=== PATIENT | female | born 2000 | race Two or more races ===

== ENCOUNTER → 2021-12-04 | Day surgery (SDC) | payer OTHER | END | disposition home or self-care (01) | LOC: ADM 11-28 11:15 → CIR.AMB 07:36 | PROVIDERS: ATTEND Orthopaedic Surgery Hand Surgery | DX: S62.652A Nondisplaced fracture of middle phalanx of right middle finger, initial encounter for closed fracture (principal); M24.541 Contracture, right hand ==

== ENCOUNTER 2024-07-28 13:16 | Outpatient (CLI) | payer OTHER | END 2024-07-28 13:22 | disposition home or self-care (01) | LOC: PRENATAL 13:16 | PROVIDERS: ATTEND Obstetrics & Gynecology Maternal & Fetal Medicine | DX: O36.80X0 Pregnancy with inconclusive fetal viability, not applicable or unspecified (principal); Z36.82 Encounter for antenatal screening for nuchal translucency; O30.90 Multiple gestation, unspecified, unspecified trimester; O34.219 Maternal care for unspecified type scar from previous cesarean delivery; Z14.8 Genetic carrier of other disease; Z3A.12 12 weeks gestation of pregnancy ==

== ENCOUNTER 2024-09-23 13:12 | Outpatient (CLI) | payer OTHER | END 2024-09-23 13:13 | disposition home or self-care (01) | LOC: PRENATAL 13:12 | PROVIDERS: ATTEND Obstetrics & Gynecology Maternal & Fetal Medicine | DX: O44.00 Complete placenta previa NOS or without hemorrhage, unspecified trimester (principal); O30.90 Multiple gestation, unspecified, unspecified trimester; O34.219 Maternal care for unspecified type scar from previous cesarean delivery; Z3A.20 20 weeks gestation of pregnancy ==

== ENCOUNTER 2024-10-22 10:45 | Outpatient (CLI) | payer OTHER | END 2024-10-22 10:47 | disposition home or self-care (01) | LOC: PRENATAL 10:45 | PROVIDERS: ATTEND Obstetrics & Gynecology Maternal & Fetal Medicine | DX: O26.849 Uterine size-date discrepancy, unspecified trimester (principal); O30.90 Multiple gestation, unspecified, unspecified trimester; O34.219 Maternal care for unspecified type scar from previous cesarean delivery; Z3A.24 24 weeks gestation of pregnancy ==

== ENCOUNTER 2024-11-19 11:33 | Outpatient (CLI) | payer OTHER | END 2024-11-19 11:34 | disposition home or self-care (01) | LOC: PRENATAL 11:33 | PROVIDERS: ATTEND Obstetrics & Gynecology Maternal & Fetal Medicine | DX: O26.849 Uterine size-date discrepancy, unspecified trimester (principal); O30.90 Multiple gestation, unspecified, unspecified trimester; O34.219 Maternal care for unspecified type scar from previous cesarean delivery; O99.019 Anemia complicating pregnancy, unspecified trimester; Z3A.28 28 weeks gestation of pregnancy ==

== ENCOUNTER → 2024-12-16 16:03 | Outpatient (CLI) | payer OTHER | END | disposition home or self-care (01) | LOC: PRENATAL 16:03 | PROVIDERS: ATTEND Obstetrics & Gynecology Maternal & Fetal Medicine | DX: O26.849 Uterine size-date discrepancy, unspecified trimester (principal); O36.8199 Decreased fetal movements, unspecified trimester, other fetus; O30.90 Multiple gestation, unspecified, unspecified trimester; O34.219 Maternal care for unspecified type scar from previous cesarean delivery; Z3A.32 32 weeks gestation of pregnancy ==

== ENCOUNTER 2024-12-17 12:06 | Outpatient (CLI) | payer OTHER | END 2024-12-17 12:07 | disposition home or self-care (01) | LOC: PRENATAL 12:06 | PROVIDERS: ATTEND Obstetrics & Gynecology Maternal & Fetal Medicine | DX: Z76.1 Encounter for health supervision and care of foundling (principal) ==

== ENCOUNTER 2025-05-27 16:06 | Inpatient (IN) | payer OTHER ==
[~2025-05-27] VITALS: Ht 152.4 cm; Wt 79.8 kg
[2025-05-27] MEDS ORDERED: FAMOTIDINE/PF 20 MG/2 ML VIAL IV PUSH STA (18:04)
[2025-05-27 18:21] LABS: BASO % 0.1 % (0.1-1.2); EOS # 0.01 (0.04-0.54); EOS % 0.1 % (0.7-7.0); LYMPH # 1.29 (1.18-3.74); LYMPH % 12.0 % (19.3-53.1); MEAN PLATELET VOLUME 11.20 fl (9.4-12.4); MONO # 0.33 (0.24-0.82); MONO % 3.1 % (4.7-12.5); NEUT # 9.10 (1.56-6.13); NEUT % 84.3 % (34.0-71.1); RED CELL DISTRIBUTION WIDTH 16.0 % (11.6-14.4)
[2025-05-27 20:19] LABS: ALT/SGPT 160.0 U/L (12-78); AST/SGOT 181.0 U/L (15-37); BILIRUBIN TOTAL 0.71 mg/dL (0.3-1.2); BUN CREA RATIO 16.0 (7.0-25.0); CREATININE SERUM 0.69 mg/dL (0.55-1.02); GFR 103.66; GLOBULINA 3.1 G/DL (2.4-3.5); GLUCOSE FASTING 100.0 mg/dL (65-100); OSMOLALITY SERUM 281.0 MOSM/KG (275-295)
[2025-05-27 20:42] LABS: URINE APPEARANCE Cloudy; URINE BILIRRUBIN Negative (NEGATIVE); URINE BLOOD Small; URINE COLOR Dark Yellow; URINE GLUCOSE Negative (NEGATIVE); URINE KETONE 15 (NEGATIVE); URINE LEUKOCYTE Large; URINE NITRATE Negative; URINE PROTEIN Trace (NEGATIVE); URINE UROBILINOGEN 0.2 E.U./dl
[2025-05-27 20:45] LABS: URINE BACTERIA 7331.9 uL (0.0-1933); URINE EPITHELIAL CELLS 71.9 uL (0.0-38.8); URINE RBC 52.5 uL (0.0-20.8); URINE WBC 1222.1 uL (0.0-23.2)
[2025-05-27 20:57] LABS: URINE CAST 0.43 uL (0.0-1.40)
[2025-05-27 20:58] LABS: URINE YEAST FEW /hpf
[2025-05-27] MEDS ORDERED: RINGERS SOLUTION,LACTATED 1,000 ML IV SCH (21:15)
[2025-05-27] MEDS ORDERED: ONDANSETRON HCL 4 MG in DEXTROSE 5 % IN WATER 50 ML IV PRN (21:15)
[2025-05-27] MEDS ORDERED: KETOROLAC TROMETHAMINE 30 MG VIAL IV PRN (21:15)
[2025-05-27] MEDS ORDERED: MORPHINE SULFATE 4 MG/ML VIAL IV PRN (21:15)
[2025-05-27] MEDS ORDERED: PIPERACILLIN/TAZOBACTAM SODIUM 3.375 GM in DEXTROSE 5 % IN WATER 100 ML IV SCH (21:38)
[2025-05-27 22:57] LABS: CHOL HDL RATIO 2.6 (0-5.0); HDL 49.0 mg/dl (40-60); LDL 70.0 mg/dl (0-130); VLDL 10.0 (0-39)
[2025-05-28] MEDS ORDERED: FAMOTIDINE/PF 20 MG/2 ML VIAL IV SCH (09:00)
[2025-05-28 14:22] VITALS: BP 101/52; O2SAT 99
[2025-05-28 17:51] VITALS: BP 118/53; O2SAT 99
[2025-05-29 01:00] VITALS: BP 120/79; O2SAT 98
[2025-05-29 07:59] LABS: BASO % 0.4 % (0.1-1.2); EOS # 0.31 (0.04-0.54); EOS % 4.1 % (0.7-7.0); LYMPH # 2.39 (1.18-3.74); LYMPH % 31.8 % (19.3-53.1); MEAN PLATELET VOLUME 11.70 fl (9.4-12.4); MONO # 0.31 (0.24-0.82); MONO % 4.1 % (4.7-12.5); NEUT # 4.45 (1.56-6.13); NEUT % 59.3 % (34.0-71.1); RED CELL DISTRIBUTION WIDTH 16.2 % (11.6-14.4)
[2025-05-29 08:00] VITALS: BP 106/71; O2SAT 98
[2025-05-29 08:16] VITALS: BP 106/71; O2SAT 98
[2025-05-29 08:18] LABS: ALT/SGPT 72.0 U/L (12-78); AST/SGOT 22.0 U/L (15-37); BILIRUBIN TOTAL 0.51 mg/dL (0.3-1.2); BUN CREA RATIO 15.0 (7.0-25.0); CREATININE SERUM 0.65 mg/dL (0.55-1.02); GFR 111.06; GLOBULINA 2.4 G/DL (2.4-3.5); GLUCOSE FASTING 56.0 mg/dL (65-100); OSMOLALITY SERUM 284.0 MOSM/KG (275-295)
[2025-05-29] MEDS ORDERED: ZOFRAN8 MG PO (13:56)
[2025-05-29] MEDS ORDERED: TRAM1TAB98 PO (13:56)
== END 2025-05-29 16:54 | disposition home or self-care (01) | DRG 439 ==
LOC: ER 16:06 → SEC-K 22:33 → SURG 05-28 13:05
PROVIDERS: Emergency Medicine; ADMIT Internal Medicine; ATTEND Internal Medicine
PROC: BW40ZZZ Ultrasonography of Abdomen (ICD-10-PCS; principal; 2025-05-27)
PROC: BW21YZZ Computerized Tomography (CT Scan) of Abdomen and Pelvis using Other Contrast (ICD-10-PCS; 2025-05-27)
PROC: BW21ZZZ Computerized Tomography (CT Scan) of Abdomen and Pelvis (ICD-10-PCS; 2025-05-27)
PROC: BF37ZZZ Magnetic Resonance Imaging (MRI) of Pancreas (ICD-10-PCS; 2025-05-27)
DX: K85.90 Acute pancreatitis without necrosis or infection, unspecified (principal); N39.0 Urinary tract infection, site not specified; K80.20 Calculus of gallbladder without cholecystitis without obstruction

== ENCOUNTER 2025-06-06 10:28 | Emergency (ER) | payer OTHER ==
[~2025-06-06] VITALS: Ht 160 cm; Wt 79.8 kg
[~2025-06-06 10:28] MED LIST: TRAM1TAB98 PO; ZOFRAN8 MG PO
[2025-06-06] MEDS ORDERED: FAMOTIDINE/PF 20 MG in 0.9 % SODIUM CHLORIDE 8 ML IV PUSH STA (11:17)
[2025-06-06] MEDS ORDERED: FAMOTIDINE/PF 20 MG/2 ML VIAL ONE (11:18)
[2025-06-06] MEDS ORDERED: SUCRALFATE 1 G TABLET PO ONE (11:30)
[2025-06-06 11:33] LABS: BASO % 0.2 % (0.1-1.2); EOS # 0.04 (0.04-0.54); EOS % 0.5 % (0.7-7.0); LYMPH # 0.85 (1.18-3.74); LYMPH % 9.6 % (19.3-53.1); MEAN PLATELET VOLUME 11.00 fl (9.4-12.4); MONO # 0.42 (0.24-0.82); MONO % 4.7 % (4.7-12.5); NEUT # 7.51 (1.56-6.13); NEUT % 84.9 % (34.0-71.1); RED CELL DISTRIBUTION WIDTH 15.9 % (11.6-14.4)
[2025-06-06] MEDS ORDERED: KETOROLAC TROMETHAMINE 30 MG VIAL IV ONE (14:15)
[2025-06-06] MEDS ORDERED: KETOROLAC TROMETHAMINE 30 MG VIAL ONE ×2 (14:19→14:28)
== END 2025-06-06 14:44 | disposition home or self-care (01) ==
LOC: ER 10:28
PROVIDERS: Emergency Medicine
DX: K80.20 Calculus of gallbladder without cholecystitis without obstruction (principal)

== ENCOUNTER 2025-06-07 13:33 | Inpatient (IN) | payer OTHER ==
[~2025-06-07] VITALS: Ht 160 cm; Wt 79.8 kg
--- NOTE | 2025-06-07 13:36 | NUR ---
PACIENTE ALERTA Y ORIENTADA X 3. REFIERE DOLOR ABDOMINAL DESDE RE QUE INDICA SE ATENDIO POR ER KARON EL DOLOR CONTINUA. PACIENTE CON REFERIDO DE DRA GOMEZOA
[2025-06-07] MEDS ORDERED: FAMOTIDINE/PF 20 MG in 0.9 % SODIUM CHLORIDE 8 ML IV PUSH STA (13:47)
[2025-06-07] MEDS ORDERED: KETOROLAC TROMETHAMINE 30 MG VIAL ONE (13:48)
[2025-06-07] MEDS ORDERED: METHYLPREDNISOLONE SOD SUCC 125 MG VIAL ONE (13:48)
[2025-06-07] MEDS ORDERED: FAMOTIDINE/PF 20 MG/2 ML VIAL ONE (13:49)
[2025-06-07 13:59] LABS: BASO % 0.1 % (0.1-1.2); EOS # 0.12 (0.04-0.54); EOS % 1.7 % (0.7-7.0); LYMPH # 2.03 (1.18-3.74); LYMPH % 28.1 % (19.3-53.1); MEAN PLATELET VOLUME 10.60 fl (9.4-12.4); MONO # 0.31 (0.24-0.82); MONO % 4.3 % (4.7-12.5); NEUT # 4.75 (1.56-6.13); NEUT % 65.7 % (34.0-71.1); RED CELL DISTRIBUTION WIDTH 15.9 % (11.6-14.4)
[2025-06-07] MEDS ORDERED: METHYLPREDNISOLONE SOD SUCC 125 MG VIAL IV ONE (14:00)
[2025-06-07] MEDS ORDERED: KETOROLAC TROMETHAMINE 30 MG VIAL IV ONE (14:00)
[2025-06-07] MEDS ORDERED: 0.9 % SODIUM CHLORIDE 1,000 ML IV SCH (14:00)
--- NOTE | 2025-06-07 14:02 | NUR ---
PTE ES ORIENTADA POR LISA OROZCO SOBRE TX MEDICO, PTE REFIERE ENTENDER Y ACEPTAR SE COLOCA H/L EN BRAZO ALEXIA. SE RECOLECTAN MUESTRAS DE LAB Y SE ADMISNITRA [facility] [place] ORDEN MEDICA BAJO MEDIDAS ASEPTICAS.
[2025-06-07 14:23] LABS: ALT/SGPT 84.0 U/L (12-78); AST/SGOT 33.0 U/L (15-37); BILIRUBIN TOTAL 0.35 mg/dL (0.3-1.2); BILIRUBIN,CONJUGATED 0.12 mg/dL (0.0-0.2); BUN CREA RATIO 17.0 (7.0-25.0); CREATININE SERUM 0.71 mg/dL (0.55-1.02); GFR 100.3; GLOBULINA 3.1 G/DL (2.4-3.5); GLUCOSE FASTING 83.0 mg/dL (65-100); OSMOLALITY SERUM 282.0 MOSM/KG (275-295)
[2025-06-07] MEDS ORDERED: CEFTRIAXONE SODIUM 2,000 MG in 0.9 % SODIUM CHLORIDE 100 ML IV SCH (17:35)
[2025-06-07] MEDS ORDERED: CEFTRIAXONE SODIUM 2,000 MG VIAL ONE (17:44)
[2025-06-07] MEDS ORDERED: PIPERACILLIN/TAZOBACTAM SODIUM 3.375 GM VIAL IV ONE (17:44)
[2025-06-07] MEDS ORDERED: ONDANSETRON HCL 4 MG in 0.9 % SODIUM CHLORIDE 50 ML IV PRN (17:45)
[2025-06-07] MEDS ORDERED: MORPHINE SULFATE 4 MG/ML CARTRIDGE IV PRN (17:45)
[2025-06-07] MEDS ORDERED: ACETAMINOPHEN 500 MG GEL..CAP PO PRN (17:45)
[2025-06-07] MEDS ORDERED: RINGERS SOLUTION,LACTATED 1,000 ML IV SCH (17:45)
[2025-06-07] MEDS ORDERED: PIPERACILLIN/TAZOBACTAM SODIUM 3.375 GM in 0.9 % SODIUM CHLORIDE 100 ML IV SCH (18:00)
[2025-06-07 19:46] VITALS: BP 114/66; O2SAT 98
[2025-06-08 02:18] VITALS: BP 117/63; O2SAT 100
[2025-06-08 06:53] LABS: BASO % 0.0 % (0.1-1.2); EOS # 0.00 (0.04-0.54); EOS % 0.0 % (0.7-7.0); LYMPH # 0.93 (1.18-3.74); LYMPH % 16.5 % (19.3-53.1); MEAN PLATELET VOLUME 11.30 fl (9.4-12.4); MONO # 0.11 (0.24-0.82); MONO % 2.0 % (4.7-12.5); NEUT # 4.57 (1.56-6.13); NEUT % 81.3 % (34.0-71.1); RED CELL DISTRIBUTION WIDTH 15.9 % (11.6-14.4)
[2025-06-08 07:22] LABS: INR 1.12
[2025-06-08 07:47] LABS: ALT/SGPT 61 U/L (12-78); AST/SGOT 20 U/L (15-37); BILIRUBIN TOTAL 0.33 mg/dL (0.3-1.2); BILIRUBIN,CONJUGATED < 0.10 mg/dL (0.0-0.2); BUN CREA RATIO 23 (7.0-25.0); CREATININE SERUM 0.57 mg/dL (0.55-1.02); GFR 129.23; GLOBULINA 2.8 G/DL (2.4-3.5); GLUCOSE FASTING 96 mg/dL (65-100); OSMOLALITY SERUM 281 MOSM/KG (275-295)
[2025-06-08 08:54] VITALS: BP 120/60
[2025-06-08] MEDS ORDERED: FAMOTIDINE/PF 20 MG in 0.9 % SODIUM CHLORIDE 8 ML IV PUSH SCH (09:00)
[2025-06-08] MEDS ORDERED: KETOROLAC TROMETHAMINE 30 MG VIAL IV STA (10:42)
[2025-06-08] MEDS ORDERED: KETOROLAC TROMETHAMINE 30 MG VIAL IV PRN (10:45)
[2025-06-08 16:04] VITALS: BP 111/57; O2SAT 100
[2025-06-09 02:02] VITALS: BP 111/58; O2SAT 100
[2025-06-09 09:37] VITALS: BP 94/54; O2SAT 99
[2025-06-09] MEDS ORDERED: LEVSIN/SL0.125 MG SL (13:20)
== END 2025-06-09 14:36 | disposition home or self-care (01) | DRG 440 ==
LOC: ER 13:33 → MEDI 17:41 → SEC-K 17:41 → MEDI 17:55
PROVIDERS: General Practice; ADMIT Internal Medicine; ATTEND Internal Medicine
PROC: BF37ZZZ Magnetic Resonance Imaging (MRI) of Pancreas (ICD-10-PCS; principal; 2025-06-07)
PROC: BW40ZZZ Ultrasonography of Abdomen (ICD-10-PCS; 2025-06-07)
DX: K85.90 Acute pancreatitis without necrosis or infection, unspecified (principal); E87.6 Hypokalemia; K80.20 Calculus of gallbladder without cholecystitis without obstruction

== ENCOUNTER 2025-07-04 06:00 | Day surgery (SDC) | payer OTHER ==
[2025-06-30 10:32] LABS: BASO % 0.5 % (0.1-1.2); EOS # 0.22 (0.04-0.54); EOS % 3.5 % (0.7-7.0); LYMPH # 2.20 (1.18-3.74); LYMPH % 34.9 % (19.3-53.1); MEAN PLATELET VOLUME 11.10 fl (9.4-12.4); MONO # 0.33 (0.24-0.82); MONO % 5.2 % (4.7-12.5); NEUT # 3.49 (1.56-6.13); NEUT % 55.4 % (34.0-71.1); RED CELL DISTRIBUTION WIDTH 15.9 % (11.6-14.4)
[2025-06-30 11:03] LABS: URINE APPEARANCE Clear; URINE BILIRRUBIN Negative (NEGATIVE); URINE BLOOD Large; URINE COLOR Yellow; URINE GLUCOSE Negative (NEGATIVE); URINE KETONE 15 (NEGATIVE); URINE LEUKOCYTE Negative; URINE NITRATE Negative; URINE PROTEIN Negative (NEGATIVE); URINE UROBILINOGEN 0.2 E.U./dl
[2025-06-30 11:08] LABS: URINE BACTERIA 87.6 uL (0.0-1933); URINE EPITHELIAL CELLS 16.5 uL (0.0-38.8); URINE RBC 641.6 uL (0.0-20.8); URINE WBC 9.0 uL (0.0-23.2)
[2025-06-30 11:17] LABS: INR 1.05
[2025-06-30 11:21] LABS: URINE CAST 0.00 uL (0.0-1.40)
[2025-06-30 11:21] LABS: ALT/SGPT 63.0 U/L (12-78); AST/SGOT 17.0 U/L (15-37); BILIRUBIN TOTAL 0.41 mg/dL (0.3-1.2); BUN CREA RATIO 14.0 (7.0-25.0); CREATININE SERUM 0.66 mg/dL (0.55-1.02); GFR 109.12; GLOBULINA 3.0 G/DL (2.4-3.5); GLUCOSE FASTING 89.0 mg/dL (65-100); OSMOLALITY SERUM 281.0 MOSM/KG (275-295)
[~2025-07-04 06:00] MED LIST changes: +LEVSIN/SL0.125 MG SL
[2025-07-04] MEDS ORDERED: CEFAZOLIN SODIUM 1,000 MG VIAL ONE (07:45)
[2025-07-04] MEDS ORDERED: BUPIVACAINE HCL/MPF 0.5% 30ML VIAL ONE (08:03)
[2025-07-04] MEDS ORDERED: LIDOCAINE HCL 1%/EPINEPHRINE 20ML VIAL IJ ONE (08:03)
[2025-07-04] MEDS ORDERED: SUGAMMADEX SODIUM 200 MG/2 ML VIAL IV ONE (09:54)
== END 2025-07-04 13:10 | disposition home or self-care (01) ==
LOC: CIR.AMB 06:00
PROVIDERS: ATTEND Student in an Organized Health Care Education/Training Program
DX: K80.10 Calculus of gallbladder with chronic cholecystitis without obstruction (principal)